=== PATIENT | male | born 1980 ===

== ENCOUNTER 2018-01-07 09:50 | Emergency (ER) | payer OTHER ==
[2018-01-07 10:10] VITALS: RESP 20; O2SAT 98
[2018-01-07] MEDS ORDERED: methylPREDNISolone 125 MG in Sodium Chloride 0.9% 50 ML IM STA (11:06)
--- NOTE | 2018-01-07 11:54 | ED PDOC ---
HPI: Allergic Reaction Time Seen by Provider: 01/07/18 10:38 Chief Complaint (Nursing): Allergic Reaction History Per: Patient Additional Complaint(s): Pt. states on Sunday he used a hair dye on his vincent and the following day he developed itching to the areas he placed the dye on and this morning he developed swelling to those same areas. Of note, pt. has not used dye in the past and has not used any meds to help relieve symptoms. Denies pain, fever, dental pain, SOB, throat swelling, hx of allergic reactions. Past Medical History Reviewed: Historical Data, Nursing Documentation, Vital Signs Vital Signs: Last Vital Signs Temp 98.2 F 01/07/18 10:07 Pulse 64 01/07/18 10:07 Resp 20 01/07/18 10:07 BP 155/90 H 01/07/18 10:07 Pulse Ox 98 01/07/18 10:07 - Surgical History Surgical History: No Surg Hx - Family History Family History: States: No Known Family Hx - Immunization History Hx Tetanus Toxoid Vaccination: No Hx Influenza Vaccination: No Hx Pneumococcal Vaccination: No - Home Medications Home Medications: Ambulatory Orders Medication Instructions Recorded Methylprednisolone [Medrol Dose 4 mg PO DAILY #21 mg 01/07/18 Pack (21 tabs)] - Allergies Allergies/Adverse Reactions: Allergies Allergy/AdvReac Type Severity Reaction Status Date / Time No Known Allergies Allergy Verified 01/07/18 10:07 Review of Systems ROS Statement: Except As Marked, All Systems Reviewed And Found Negative Skin: Positive for: Rash Physical Exam - Physical Exam Appears: Positive for: Well, Non-toxic, No Acute Distress Skin: Positive for: Normal Color, Warm. Negative for: Rash Eye Exam: Positive for: EOMI, Normal appearance, PERRL ENT: Positive for: TM Is/Are (non-erythematous, non-bulging b/l), Other (b/l facial areas on vincent line there is swelling and scattered vesicles (intact and non-intact) extending to temporal scalp and also noted on forehead without surrounding erythema; no gingival swelling). Negative for: Pharyngeal Erythema, Tonsillar Exudate, Tonsillar Swelling Neck: Positive for: Normal (no LAD), Painless ROM Respiratory: Positive for: Normal Breath Sounds. Negative for: Stridor Neurologic/Psych: Positive for: Alert, Oriented (x3). Negative for: Aphasia, Facial Droop - ECG O2 Sat by Pulse Oximetry: 98 - Progress ED Course And Treament: Solu-medrol 125mg IM ordered. Advised to use benadryl 50mg PO q6h PRN itching. Warned about drowsiness from Benadryl. Also advised to stop using hair dye as he is allergic to it. Disposition - Clinical Impression Clinical Impression: Contact dermatitis - Patient ED Disposition Is Patient to be Admitted: No - Disposition Referrals: [facility] [Outside] [facility] [Outside] Disposition: Routine/Home Disposition Time: 10:54 Condition: STABLE Additional Instructions: RETURN TO ED IMMEDIATELY IF SHORTNESS OF BREATH OR FEVER DEVELOPS OR IF SWELLING WORSENS BRADLEY ANDRES, thank you for letting us take care of you today. Your provider was Tami Garcia MD and you were treated for POSS ALLERGIC REACTION. The emergency medical care you received today was directed at your acute symptoms. If you were prescribed any medication, please fill it and take as directed. It may take several days for your symptoms to resolve. Return to the Emergency Department if your symptoms worsen, do not improve, or if you have any other problems. Please contact your doctor or call one of the physicians/clinics you have been referred to that are listed on the Patient Visit Information form that is included in your discharge packet. Bring any paperwork you were given at discharge with you along with any medications you are taking to your follow up visit. Our treatment cannot replace ongoing medical care by a primary care provider outside of the emergency department. Thank you for allowing the [facility] team to be part of your care today. If you had an X-Ray or CT scan: A Radiologist will review the ED reading if any change in treatment is needed we will contact you. If you had a blood, urine, or wound culture: It will take several days for the results, if any change in treatment is needed we will contact you. If you had an STI test: It will take 48 hours for the results. Please call after 1 week if you have not heard back. Prescriptions: Methylprednisolone [Medrol Dose Pack (21 tabs)] 4 mg PO DAILY #21 mg Instructions: Contact Dermatitis (DC) Forms: [facility] ([place]), [facility] ED School/Work Excuse
[2018-01-07 14:10] VITALS: BP 110/70; PULSE 78; TEMP 98.3
== END 2018-01-07 13:30 | disposition home or self-care (01) ==
LOC: H.ER 09:50
DX: L25.9 Unspecified contact dermatitis, unspecified cause (principal)
CPT/HCPCS: 96372; 99283; J2930